=== PATIENT | female | born 1990 | race Two or more races ===

== ENCOUNTER 2016-09-09 20:32 | Emergency (ER) | payer MEDICAID ==
[~2016-09-09] VITALS: Ht 165.1 cm; Wt 77.1 kg
--- NOTE | 2016-09-09 21:00 | NUR ---
DR. COREA IS AT THE BEDSIDE.
[2016-09-09] MEDS ORDERED: IV NS 0.9% 1,000 ML ONE ×2 (21:19→21:58)
[2016-09-09] MEDS ORDERED: IV SET PRIMARY 1 EA INFUS.SET MC ONE (21:19)
[2016-09-09] MEDS ORDERED: ONDANSETRON HCL/PF 4 MG/2 ML VIAL ONE ×3 (21:19→22:02)
[2016-09-09] MEDS ORDERED: KETOROLAC TROMETHAMINE INJ 30 MG/ML VIAL ONE (21:19)
[2016-09-09] MEDS ORDERED: MORPHINE SULFATE INJ 4 MG/ML DISP.SYRIN ONE ×2 (21:19→21:58)
[2016-09-09] MEDS ORDERED: MORPHINE SULFATE INJ 2 MG/ML DISP.SYRIN IV ONE (21:30)
[2016-09-09] MEDS ORDERED: ONDANSETRON HCL/PF - ER 4 MG/2 ML VIAL IV ONE (21:30)
[2016-09-09] MEDS ORDERED: IV NS 0.9% 1,000 ML BAG IV ONE ×2 (21:30→22:30)
[2016-09-09] MEDS ORDERED: KETOROLAC TROMETHAMINE INJ 30 MG/ML VIAL IV ONE (21:30)
[2016-09-09] MEDS ORDERED: HYDROMORPHONE 1 MG/1 ML DISP.SYRIN ONE (22:02)
[2016-09-09] MEDS ORDERED: ONDANSETRON HCL/PF 4 MG/2 ML VIAL IV ONE (22:30)
[2016-09-09] MEDS ORDERED: HYDROMORPHONE MDV 1 MG in IV D5W 50 ML IV PRN (22:30)
[2016-09-09] MEDS ORDERED: HYDROMORPHONE 1 MG/1 ML DISP.SYRIN IV ONE (22:30)
[2016-09-09 22:50] VITALS: BP 108/55
== END 2016-09-09 22:48 | disposition home or self-care (01) ==
LOC: ER 20:38
DX: N83.202 Unspecified ovarian cyst, left side (principal)
CPT/HCPCS: A4606; J1170; J1885; J2270; J2405; J7030; J7060; Z7610

== ENCOUNTER 2019-04-06 18:14 | Emergency (ER) | payer SELFPAY ==
[~2019-04-06] VITALS: Ht 170.2 cm; Wt 74.8 kg
--- NOTE | 2019-04-06 18:25 | NUR ---
AAOX3, CAME TO ER C/O RFA PAIN RADIATES TO R UPPER ARM S/P FELL OFF THE LADDER X YESTERDAY, -KO. RR CMS WNL. RR IS EVEN AND UNLABORED WITH NAD NOTED. SKIN IS WARM AND DRY. AWAITING MD FOR EVAL.
[2019-04-06] MEDS ORDERED: HYDROCODONE/APAP 10/325MG 1 EA TABLET ONE (18:43)
[2019-04-06] MEDS ORDERED: ONDANSETRON 4 MG TAB.RAPDIS ONE (18:43)
[2019-04-06] MEDS ORDERED: HYDROCODONE/APAP 10/325MG 1 EA TABLET PO ONE (19:00)
[2019-04-06] MEDS ORDERED: ONDANSETRON 4 MG TAB.RAPDIS SL ONE (19:00)
--- NOTE | 2019-04-06 19:18 | NUR ---
report given to Elva BURK for adina
--- NOTE | 2019-04-06 19:42 | NUR ---
Patient discharged to home in stable condition. Written and verbal after care instructions given. Patient verbalizes understanding of instruction.
[2019-04-06 19:43] VITALS: BP 118/55
== END 2019-04-06 19:43 | disposition home or self-care (01) ==
LOC: ER 18:14
DX: M25.531 Pain in right wrist (principal); M25.511 Pain in right shoulder; M79.631 Pain in right forearm; Z98.890 Other specified postprocedural states; Z60.2 Problems related to living alone; W01.0XXA Fall on same level from slipping, tripping and stumbling without subsequent striking against object, initial encounter; Y93.89 Activity, other specified; Y92.89 Other specified places as the place of occurrence of the external cause; Y99.8 Other external cause status
CPT/HCPCS: 73030; 73060; 73090; 73110; 99283; Q0162

== ENCOUNTER 2022-07-08 06:27 | Emergency (ER) | payer SELFPAY ==
[~2022-07-08] VITALS: Ht 170.2 cm; Wt 72.6 kg
--- NOTE | 2022-07-08 07:15 | NUR ---
RECEIVED PT FROM OPAL RN PT ASLEEPY RESPIRATION SPONT AND EASY HASUPND AT BED ANAYELI
[2022-07-08] MEDS ORDERED: LORA-258 PO (07:20)
--- NOTE | 2022-07-08 07:25 | NUR ---
RESTING AT THIS TIME
[2022-07-08] MEDS ORDERED: LORAZEPAM 1 MG TABLET PO ONE (07:30)
[2022-07-08] MEDS ORDERED: LORAZEPAM 1 MG TABLET ONE (07:30)
--- NOTE | 2022-07-08 07:41 | NUR ---
Patient discharged to home in stable condition. Written and verbal after care instructions given. Patient verbalizes understanding of instruction.
[2022-07-08 07:46] VITALS: BP 126/89
== END 2022-07-08 07:46 | disposition home or self-care (01) ==
LOC: ER 06:29
DX: F41.8 Other specified anxiety disorders (principal); R07.89 Other chest pain

== ENCOUNTER 2024-11-27 13:52 | Emergency (ER) | payer OTHER ==
[~2024-11-27] VITALS: Ht 172.7 cm; Wt 81.6 kg
[~2024-11-27 13:52] MED LIST: LORA-258 PO
[2024-11-27 14:05] VITALS: TEMP 97.8
[2024-11-27] MEDS ORDERED: PANTOPRAZOLE 40 MG VIAL ONE (14:31)
[2024-11-27] MEDS ORDERED: ONDANSETRON HCL/PF 4 MG/2 ML VIAL ONE (14:32)
[2024-11-27] MEDS ORDERED: FAMOTIDINE/PF INJ 20 MG/2 ML VIAL IV ONE (14:32)
[2024-11-27] MEDS ORDERED: DICYCLOMINE HCL 10 MG CAPSULE PO ONE (14:32)
[2024-11-27] MEDS ORDERED: ACETAMINOPHEN ES 500 MG TABLET ONE (14:32)
[2024-11-27 14:38] LABS: PLATELET COUNT (AUTO) 258 K/uL (150-450); RED BLOOD CELL COUNT(AUTO) 4.82 MIL/uL (4.0-5.2); RED CELL DISTRIBUTION WIDTH 13.4 % (11.5-15.0); WHITE BLOOD COUNT (AUTO) 6.4 K/uL (4.3-11.0)
[2024-11-27 14:44] LABS: CALCIUM, SERUM 9.7 mg/dL (8.5-10.1); CREATININE 0.6 mg/dL (0.6-1.3); SODIUM SERUM 136.0 mmol/L (136-145); UREA NITROGEN, BLOOD 14.0 mg/dL (7-18)
[2024-11-27] MEDS: FAMOTIDINE/PF INJ 20 MG/2 ML VIAL IV ONE (14:44)
[2024-11-27] MEDS: IV NS 0.9% 1,000 ML BAG IV ONE (14:44)
[2024-11-27] MEDS: ONDANSETRON HCL/PF 4 MG/2 ML VIAL IVP ONE (14:44)
[2024-11-27] MEDS: PANTOPRAZOLE 40 MG VIAL IV ONE (14:44)
[2024-11-27] MEDS: ACETAMINOPHEN ES 500 MG TABLET PO ONE (14:45)
[2024-11-27] MEDS: DICYCLOMINE HCL 10 MG CAPSULE PO ONE (15:05)
[2024-11-27] MEDS ORDERED: ONDA4TAB5 PO (15:25)
[2024-11-27] MEDS ORDERED: FAMO-131 PO (15:25)
[2024-11-27] MEDS ORDERED: DICY10CA37 PO (15:25)
[2024-11-27] MEDS ORDERED: PANT40TA49 PO (15:25)
[2024-11-27 16:04] VITALS: BP 128/74; O2SAT 99
== END 2024-11-27 16:05 | disposition home or self-care (01) ==
LOC: ER 13:52
DX: R11.2 Nausea with vomiting, unspecified (principal); Z79.899 Other long term (current) drug therapy; R10.2 Pelvic and perineal pain
CPT/HCPCS: 99284; 96374; 96375; 96361; 85025; 80048; 36415; 84702; J1308; J2405; J7030; J2470